=== PATIENT | female | born 1960 | race Caucasian/White ===

== ENCOUNTER 2016-12-23 08:01 | Emergency (ER) | payer OTHER ==
[2016-12-23 08:14] VITALS: BP 148/78; PULSE 88; RESP 18; TEMP 98.4; O2SAT 100
[2016-12-23] MEDS ORDERED: Naproxen 500 MG TAB PO ONE (08:48)
--- NOTE | 2016-12-23 09:22 | ED PDOC ---
Lower Extremity Pain/Injury Time Seen by Provider: 12/23/16 08:42 Chief Complaint (Nursing): Lower Extremity Problem/Injury Chief Complaint (Provider): Right knee pain History Per: Patient History/Exam Limitations: no limitations Onset/Duration Of Symptoms: Days Current Symptoms Are (Timing): Still Present Severity: Moderate Additional Complaint(s): The pt is a 56yo female with PMHx of breast cancer, currently on tamoxifan, presents to the ED for evaluation of right knee pain, progressively worsening over the past week. Pt denies any obvious trauma to the region or overexertion of her knee. Describes location of pain as lateral, right above her right knee. Pt reports she is concerned because of her breast cancer history. She denies any numbness or tingling. Currently offers no additional medical complaints. Past Medical History Reviewed: Historical Data, Nursing Documentation, Vital Signs Vital Signs: Last Vital Signs Temp 98.4 F 12/23/16 08:19 Pulse 88 12/23/16 08:19 Resp 18 12/23/16 08:19 BP 148/78 12/23/16 08:19 Pulse Ox 100 12/23/16 08:19 - Medical History PMH: HTN, Malignancy (breast cancer) - Family History Family History: States: No Known Family Hx - Social History Current smoker - smoking cessation education provided: No Alcohol: None Drugs: Denies - Home Medications Home Medications: Ambulatory Orders Medication Instructions Recorded Naproxen [Naprosyn] 500 mg PO BID PRN #20 tablet 12/23/16 - Allergies Allergies/Adverse Reactions: Allergies Allergy/AdvReac Type Severity Reaction Status Date / Time daptomycin Allergy RASH Verified 12/23/16 08:19 Review of Systems ROS Statement: Except As Marked, All Systems Reviewed And Found Negative Musculoskeletal: Positive for: Leg Pain (right knee pain) Neurological: Negative for: Numbness Physical Exam - Reviewed Nursing Documentation Reviewed: Yes Vital Signs Reviewed: Yes - Physical Exam Appears: Positive for: Well, Non-toxic, No Acute Distress Head Exam: Positive for: ATRAUMATIC, NORMAL INSPECTION, NORMOCEPHALIC Skin: Positive for: Normal Color, Warm, DRY Eye Exam: Positive for: EOMI, Normal appearance, PERRL Neck: Positive for: Normal Cardiovascular/Chest: Positive for: Regular Rate, Rhythm Respiratory: Negative for: Respiratory Distress Extremity: Positive for: Normal ROM, Tenderness (tenderness to palpation of right lateral area above knee joint. no redness or swelling noted. no hip tenderness noted.) Neurologic/Psych: Positive for: Alert, Oriented - ECG O2 Sat by Pulse Oximetry: 100 (RA) Pulse Ox Interpretation: Normal - Radiology X-Ray: Read By Radiologist X-Ray Interpretation: Other (possible avulsion fracture of the femur) Medical Decision Making Medical Decision Making: Time: 0850 Impression: Right knee pain Plan: * XR Right knee * Tylenol 650 mg PO * Naproxen 500 mg pO * Reassess Scribe Attestation: Documented by Tammie Aguilar acting as a scribe for Yessy Lowe MD. Provider Attestation: All medical record entries made by the Scribe were at my direction and personally dictated by me. I have reviewed the chart and agree that the record accurately reflects my personal performance of the history, physical exam, medical decision making, and the department course for this patient. I have also personally directed, reviewed, and agree with the discharge instructions and disposition. In retrospect, patient recalls having lifted something heavy days prior to onset of symptoms. Advised to followup with PMD early so that other evaluations can be done prior to her planned vacation in one month Disposition - Clinical Impression Clinical Impression: Knee pain, acute - Patient ED Disposition Is Patient to be Admitted: No Doctor Will See Patient In The: Office Counseled Patient/Family Regarding: Diagnosis, Need For Followup, Rx Given - Disposition Referrals: Ifrah Castelan MD [Family Provider] - Disposition: Routine/Home Disposition Time: 10:23 Condition: IMPROVED Prescriptions: Naproxen [Naprosyn] 500 mg PO BID PRN #20 tablet PRN Reason: Pain, Moderate (4-7) Instructions: Knee Pain (ED) Forms: [employer] ([place]), [facility] ED School/Work Excuse - POA Present On Arrival: None
--- NOTE | 2016-12-23 10:16 | RAD ---
PROCEDURE: Right Knee Radiographs. HISTORY: COMPARISON: None available. FINDINGS: BONES: Linear 6 mm ossific density adjacent to the lateral distal femur, age indeterminate. At least 2 chronic appearing well corticated rounded ossific densities adjacent to the lateral distal femur. The remainder of the visualized osseous structures appear intact. JOINTS: No dislocation. Small suprapatellar enthesophyte. JOINT EFFUSION: Small suprapatellar joint effusion. OTHER FINDINGS: None. IMPRESSION: Age indeterminate 6 mm linear ossific density adjacent to the lateral femur. This finding may reflect small avulsion fracture fragment. Small suprapatellar joint effusion.
== END 2016-12-23 10:49 | disposition home or self-care (01) ==
LOC: H.ER 08:01
DX: M25.561 Pain in right knee (principal); I10 Essential (primary) hypertension; Z85.3 Personal history of malignant neoplasm of breast